=== PATIENT | male | born 1970 | race Caucasian/White ===

== ENCOUNTER 2021-07-12 19:49 | Emergency (ER) | payer OTHER ==
[~2021-07-12] VITALS: Ht 182.9 cm; Wt 122.5 kg
[~2021-07-12 19:49] MED LIST: ADVAIR 500-501 EACH INH; AMBIEN 10 MG TA10 MG PO; SINGULAIR 10 MG10 M1 PO; VENTOLIN HFA INH8 GM; VICOPROFEN 2001 EACH PO
[2021-07-12] MEDS ORDERED: PLAQUENIL200 MG PO (20:00)
[2021-07-12] MEDS ORDERED: TROKENDI XR200 MG PO (20:01)
[2021-07-12] MEDS ORDERED: VYVANSE20 MG PO (20:02)
[2021-07-12] MEDS ORDERED: METFORMIN HCL500 M3 PO (20:02)
[2021-07-12] MEDS ORDERED: IMMUN GLOB (20:04)
[2021-07-12 23:18] VITALS: BP 144/78
== END 2021-07-12 23:18 | disposition home or self-care (01) ==
LOC: M.ERS 19:49
DX: I80.8 Phlebitis and thrombophlebitis of other sites (principal); J45.909 Unspecified asthma, uncomplicated; Z79.899 Other long term (current) drug therapy; Z88.0 Allergy status to penicillin; Z88.1 Allergy status to other antibiotic agents

== ENCOUNTER 2021-08-20 14:23 | Emergency (ER) | payer OTHER ==
[~2021-08-20] VITALS: Ht 182.9 cm; Wt 122.9 kg
[~2021-08-20 14:23] MED LIST changes: +IMMUN GLOB; +METFORMIN HCL500 M3 PO; +PLAQUENIL200 MG PO; +TROKENDI XR200 MG PO; +VYVANSE20 MG PO
[2021-08-20] MEDS ORDERED: NORCO5 PO (14:43)
[2021-08-20] MEDS ORDERED: CIPROFLOXIN HC2.5 M1 OTIC (14:43)
[2021-08-20] MEDS ORDERED: CEPHALEXIN500 MG PO (14:43)
[2021-08-20] MEDS ORDERED: HYDROCODON-ACE1 EAC7 PO (14:46)
[2021-08-20 14:55] VITALS: BP 164/72
== END 2021-08-20 14:56 | disposition home or self-care (01) ==
LOC: M.ERS 14:23
DX: H66.91 Otitis media, unspecified, right ear (principal); H60.91 Unspecified otitis externa, right ear; J45.909 Unspecified asthma, uncomplicated; Z79.899 Other long term (current) drug therapy; Z88.2 Allergy status to sulfonamides; Z88.0 Allergy status to penicillin